=== PATIENT | male | born 1955 | race Caucasian/White ===

== ENCOUNTER 2017-03-30 06:47 | Inpatient (IN) ==
[2017-03-30] MEDS ORDERED: Vancomycin 1,500 MG in D5% in Water 250 ML IVPB ONE ×2 (07:04→19:00)
[2017-03-30] MEDS ORDERED: CeFAZolin Syr 2,000MG/20 ML 2,000 MG/20 ML SYRINGE IVPB ONE (07:04)
[2017-03-30] MEDS ORDERED: Ringers Solution, Lactated 1,000 ML IVC SCH (07:15)
--- NOTE | 2017-03-30 07:30 | Anesthesia Evaluation PreOp ---
Date of Encounter: 03/30/17 Time of Encounter: 07:27 - Past History Planned Operation: Right Fem-Pop BPG Cardiac History: NE, HTN, Hyperlipidemia, Arrhythmia (A-Fib - cardioverted 2015), Cardiac Surgery (2v CABG 12/2011), Cardiac Stent (03/2008) Pulmonary History: Former smoker (QUIT 1982) [employer] History: Other (Peripheral neuropathy) Other Medical History: Diabetes Type II, GERD Anesthesia History: No Prior Anesthetic Complications, Past Anesthesia (CABG, Greg TKR) Alcohol Use: none Drug use: none Medications and Allergies Atorvastatin Calcium [Lipitor] 80 mg PO HS 01/09/16 [History] Carvedilol [Coreg] 25 mg PO BID 01/09/16 [History] Isosorbide MONOnitrate (24 HR) [Imdur] 30 mg PO HS 01/09/16 [History] Lisinopril [Zestril] 10 mg PO DAILY 01/09/16 [History] Niacin [Niaspan] 1,000 mg PO DAILY 01/09/16 [History] Nitroglycerin [Nitrostat] 0.4 mg SL AD PRN 01/09/16 [History] Omeprazole [PriLOSEC] 20 mg PO DAILY 01/09/16 [History] Potassium Chloride [K-Tab ER] 10 meq PO DAILY 01/09/16 [History] Sertraline [Zoloft] 50 mg PO DAILY 01/09/16 [History] glyBURIDE [GlyBURIDE] 5 mg PO BID 01/09/16 [History] Diltiazem CD (24hr) [Cardizem CD] 120 mg PO DAILY 30 Days cap.er.24h 01/11/16 [ Rx] Cilostazol 100 mg PO BID 08/04/16 [History] Clopidogrel [Plavix] 75 mg PO HS 08/04/16 [History] Adalimumab [Humira Pen Psoriasis-Uveitis] 40 mg SQ Q2W 01/18/17 [History] Ferrous Sulfate [Iron] 325 mg PO BID 01/18/17 [History] FluocinoNIDE 0.05% CRM [Lidex] 1 appl TP BID 01/18/17 [History] Furosemide [Lasix] 40 mg PO DAILY PRN 01/18/17 [History] Sitagliptin Phosphate [Januvia] 50 mg PO DAILY 02/23/17 [History] HYDROcodone/Acet 5/325 mg [[place] 5-325 mg] 1 tab PO Q6HR PRN #20 tablet [Rx] 3 Allergy/AdvReac Type Severity Reaction Status Date / Time No Known Allergies Allergy Verified 02/23/17 06:37 - Meds/Allergy Pre-op Review Medications Reviewed: Yes Allergies Reviewed: Yes Beta Blockers on Current Med List: Yes If Beta Blockers taken, Date/Time (Last Dose taken): Carvedilol 25 mg 0600 Anesthesia Results - Labs Laboratory Tests 03/27/17 03/27/17 03/27/17 12:43 12:43 12:43 Hgb 11.9 L Hct 37.7 Plt Count 323 PT 12.5 H INR 1.2 APTT 30.0 Sodium 140 Potassium 4.2 BUN 22 Creatinine 1.17 Glucose 83 Calcium 9.2 - Imaging EKG: report reviewed (SINUS BRADYCARDIA INFERIOR MYOCARDIAL INFARCTION, present 01/2016) Additional studies: Stress Test 07/2016: No significant ECG changes with regadenoson. The left ventricle is mildly dilated. Gated LVEF = 61%. There is a medium-large sized, severe intensity, fixed perfusion defect involving the basal-mid inferior wall and basal inferolateral wall. Findings are consistent with myocardial infarction involving the basal-mid inferior wall and basal inferolateral wall. There is no evidence of reversible myocardial ischemia. PFT 01/2016: Spirometry: Normal without significant bronchodilator response. FVC 4.51, 92% predicted. FEV1 3.68, 99% predicted. Ratio 82 Lung Volumes: Mild increase RV 3.18, 136% predicted suggest air trapping, and TLC 7.55, 104% predicted Diffusion: Normal gas exchange. DLCOcor 32.17, 95% predicted Flow Volume Loop: Normal Overall normal PFT TTE 12/2015: Mildly dilated left atrium. LVEF 55-60%. Indeterminate diastolic function. Moderate concentric left ventricular hypertrophy (1.3-1.4cm) No severe valvular dysfunction. Unable to estimate RVSP due to lack of TR jet. Aortic valve not well evaluated but appears calcified and mildly restricted, recommend elective RADHA to evaluate for bicuspid aortic valve RADHA 01/2016: Technically challenging study with suboptimal windows. The aortic valve is poorly seen in most views but appears trileaflet with normal leaflet excursion on image #38. There is associated mild to moderate calcification. Gastric views were attempted for gradients but AV was not well imaged. Mild to moderate central mitral regurgitation. Normal LV and RV function. LA visually appears moderately dilated. There is no evidence for LA thrombus. SHAWNA is normal in appearance without thrombus. Velocities are reduced. Patient underwent successful DCCV of atrial fibrillation to NSR after 2 attempts. Anesthesia Exam Vital Signs/O2 Sat/Glucose, Most Recent Temp Pulse Resp BP Pulse Ox 97.9 F 59 18 141/70 95 03/30/17 07:05 03/30/17 07:05 03/30/17 07:05 03/30/17 07:05 03/30/17 07:05 Blood Glucose* 112 Height: 5'11" Weight: 102 Kg BMI 31 NPO (# of Hours): >8 - HEENT Mallampati: I Teeth: Normal Oral Opening: Greater than 3 - Cardiac Rhythm: Regular - Pulmonary Breath Sounds: bilateral Clear Anesthesia Assess/Plan ASA Score: 3 Modified Damien Scale for Level of Consciousness: Cooperative, oriented, and tranquil Anesthetic Plan: General Monitoring Plan: Standard Monitors, A-Line (Possible) Recovery Plan: PACU Anes Supervising Prov Stmt: I have participated in the evaluation of this patient. Patient informed and consented. Risks, benefits, and alternatives discussed. Patient wishes to proceed.
--- NOTE | 2017-03-30 07:33 | History & Physical Report ---
Date of Encounter: 03/30/17 Time of Encounter: 07:30 24 Hour HP Update - Instructions Instructions: If the History and Physical is less than 30 days old and was completed prior to A.M. admission and or procedure and has NOT been updated on calendar day of procedure please complete this update prior to performing procedure. - Update Patient reports changes in Medical Condition: No Changes in examination, assessment, or condition: No Changes in Medication: No Preop tests/diagnostics Reviewed: Yes Surgery Remains Indicated: Yes Consent for Planned Operative Procedure(s) Verified: Yes - Pre-Operative Checklist Preoperative Checklist Indicated: Yes Prophylactic Antibiotic Ordered: Yes (vancomycin due to MRSA risk) Home Medications Include Beta Marisol: Yes Beta Marisol Taken Today (Day of Surgery): Yes Beta Marisol Taken Yesterday (Day Prior to Surgery): Yes Is VTE Prophylaxis Indicated?: Yes
[2017-03-30] MEDS ORDERED: Heparin 1,000 UNITS/500 mL NS 1,000 ML ONE (07:44)
[2017-03-30] MEDS ORDERED: Vancomycin 1,000 MG VIAL ONE (07:45)
[2017-03-30] MEDS ORDERED: *HR* FentaNYL (PF) 100 MCG/2 ML VIAL ONE (08:05)
[2017-03-30] MEDS ORDERED: *HR* Propofol 200 MG/20 ML VIAL IVP ONE ×2 (08:05→09:55)
[2017-03-30] MEDS ORDERED: *HR* Succinylcholine 200 MG/10 ML VIAL IVP ONE (08:24)
[2017-03-30] MEDS ORDERED: *HR* Rocuronium Bromide 50 MG/5 ML VIAL ONE (08:24)
[2017-03-30] MEDS ORDERED: Dexamethasone 4 MG/ML VIAL ONE (08:24)
[2017-03-30] MEDS ORDERED: Lidocaine -MPF 2% 2 ML VIAL ONE (08:24)
[2017-03-30] MEDS ORDERED: *HR* HYDROmorphone 2 MG/ML SYRINGE ONE (08:58)
[2017-03-30] MEDS ORDERED: EPHEDrine 50 MG/ML VIAL ONE (09:14)
[2017-03-30] MEDS ORDERED: Ondansetron 4 MG/2 ML VIAL ONE (10:25)
[2017-03-30] MEDS ORDERED: *HR* Heparin 5,000 UNIT/ML VIAL ONE ×2 (10:25→11:06)
[2017-03-30] MEDS ORDERED: *HR* Meperidine 25 MG/ML SYRINGE IVP PRN (11:47)
[2017-03-30] MEDS ORDERED: *HR* OxyCODONE/APAP 5/325 TABLET PO PRN (11:47)
[2017-03-30] MEDS ORDERED: *HR* Promethazine 25 MG/ML VIAL IVP PRN (11:47)
[2017-03-30] MEDS ORDERED: *HR* HYDROmorphone (PF) 1 MG/ML SYRINGE IVP PRN (11:47)
[2017-03-30] MEDS ORDERED: Ondansetron 4 MG/2 ML VIAL IVP ONE (11:47)
--- NOTE | 2017-03-30 13:25 | Operative Note ---
Date of procedure: 03/30/17 Pre-op diagnosis: Peripheral vascular disease with disabling claudication Post-op diagnosis: same Procedure: 1. Right femoral to above knee popliteal artery bypass with 6mm Distaflo mini- cuff graft. 2. Right common and deep femoral endarterectomy. 3. Right popliteal endarterectomy. Complications: None Anesthesia: MAUREENA Surgeon: Rodríguez Tavarez Estimated blood loss (cc): 200 Specimen: Right lower extremity plaque Condition: stable Disposition: PACU Procedure in Detail: Indications: The patient is a 61 year old male with a history of disabling claudication who was found to have severe right femoral to popliteal artery disease including a superficial femoral artery occlusion. Revascularization was recommended for symptomatic relief. Procedure: The patient was identified in the preoperative area. The risks, benefits, and alternatives of the procedure were discussed. All questions were answered. The patient was taken to the operating room and placed in supine position on the operating room table. After the induction of general endotracheal anesthesia, he was cleaned and draped in normal sterile fashion. An oblique incision was made over the right groin sharply. Hemostasis was obtained with electrocautery. Through a process of blunt, sharp, and electrocautery dissection, the right femoral vessels were dissected circumferentially and surrounded with vessel loops. An incision was made on the right medial distal thigh sharply. Hemostasis was obtained with electrocautery. Through a process of blunt, sharp, and electrocautery dissection, the right above-knee popliteal artery was dissected proximally and distally and surrounded with vessel loops. A graft was tunneled between the popliteal and femoral incisions. The patient received 5000 units of heparin intravenously. Additional heparin was given throughout the case to maintain adequate anticoagulation. The popliteal vessels were occluded and a longitudinal arteriotomy was made in the popliteal artery. Significant stenotic plaque was encountered at the popliteal arteriotomy and a dental freer was used to perform an endarterectomy. No elevated flaps were noted after the endarterectomy. The distal end of the graft was then sutured in place with a running 6-0 Prolene, but not tied. Heparinized saline was infused into the lumen. Tension was applied to the femoral vessel loops. An arteriotomy was made in the common femoral artery. [place] plaque was noted in the common and deep femoral artery. A dental freer was used to perform an endarterectomy on the common and deep femroal arteries. Significant retrograde deep femoral flow was noted after the endarterectomy. The proximal graft was cut to fit the arteriotomy. The graft was anastamosed with a running 6-0 Prolene. The vessels were flushed through the graft and heparin was infused into the lumen. The graft was clamped with an atraumatic clamp. Thrombis and gelfoam were used at the proximal anastamosis. The distal arterial anastomosis was completed and prior to completing the closure, the popliteal vessels were flushed and reoccluded. Heparinized saline was infused into the lumen. The anastamosis was tied and then flow was restored. Polyphasic signals were noted distal to the distal anastomosis as well as at the posterior tibial artery. Wounds were irrigated with antibiotic-containing saline. Thrombin and gelfoam were used to aid in hemostasis. Platelet rich and platelet poor plasma were infused into the wounds. Meticulous hemostasis was obtained throughout the wound with electrocautery. Wounds were reapproximated with layers of 2-0 and 3-0 Vicryl. Skin was reapproximated with 3-0 Monocryl. Sterile dressing was applied. The patient was extubated and taken to recovery room in stable condition.
[2017-03-30] MEDS ORDERED: *HR* HYDROcodone/Acet 5/325 mg TABLET PO PRN (13:29)
[2017-03-30] MEDS ORDERED: *HR* OxyCODONE Immed Rel 5 MG TABLET PO PRN (13:29)
[2017-03-30] MEDS ORDERED: D5% in Water 1,000 ML IVC PRN (13:29)
[2017-03-30] MEDS ORDERED: Acetaminophen 325 MG TABLET PO PRN (13:29)
[2017-03-30] MEDS ORDERED: *HR* Labetalol 20 MG/4 ML SYRINGE IVP PRN (13:29)
[2017-03-30] MEDS ORDERED: Nitroglycerin 0.4 MG TAB.SUBL SL PRN (13:29)
[2017-03-30] MEDS ORDERED: Ondansetron 4 MG/2 ML VIAL IVP PRN (13:29)
[2017-03-30] MEDS ORDERED: Furosemide 40 MG TABLET PO PRN (13:29)
[2017-03-30] MEDS ORDERED: *HR* Morphine 2 MG/ML SYRINGE IVP PRN (13:29)
[2017-03-30] MEDS ORDERED: *HR* Dextrose 50 % in Water (Syg) 50 ML SYRINGE IVP PRN (13:29)
[2017-03-30] MEDS ORDERED: Naloxone 0.4 MG/ML INJ IVP PRN (13:29)
[2017-03-30] MEDS ORDERED: Dextrose Gel 15 GM PO PRN ×2 (13:29)
[2017-03-30] MEDS ORDERED: CeFAZolin Premix DUPLEX 2,000 MG/50 ML BAG IVPB SCH (14:30)
[2017-03-30] MEDS ORDERED: Insulin LISPRO 300 UNITS/3 ML VIAL SQ SCH ×2 (16:30→21:00)
[2017-03-30] MEDS: *HR* Metoprolol 5 MG/5 ML VIAL IVP SCH ×2 (17:36→23:29)
[2017-03-30] MEDS ORDERED: *HR* Heparin 5,000 UNIT/ML VIAL SQ SCH (18:00)
--- NOTE | 2017-03-30 18:15 | Event Note ---
Date of Encounter: 03/30/17 Time of Encounter: 17:50 The patient was seen and examined this evening. He has swelling around the lower thigh, particluarly in the posterior medial portion. His compartemtns are soft. He has now pain with passive motion. There is no ecchymosis or pulsatile mass. The patient has polyphasic pedal signals. He is hemodynamically stable with adequate pain control. He will continue to elevate his right lower extremity. He will continue with an ice pack on the right thigh. Patient discussed with nursing and family.
[2017-03-30] MEDS ORDERED: Isosorbide MONOnitrate (24 HR) 30 MG TAB.ER.24H PO SCH (21:00)
[2017-03-30] MEDS: FluocinoNIDE 0.05% CRM 15 GM TUBE TP SCH (21:14)
[2017-03-31] MEDS ORDERED: CeFAZolin Premix DUPLEX 2,000 MG/50 ML BAG IVPB SCH
[2017-03-31 04:02] LABS: Basophils % 0.2 %; Eosinophils # 0.1 K/mcL (0.0-0.6); Eosinophils % 0.6 %; Hematocrit 30.8 % (37.5-50.1); Immature Granulocytes % 0.5 % (0-4); Lymphocytes # 2.3 K/mcL (0.6-4.6); Mean Corpuscular HGB Conc 31.2 g/dL (31.6-35.5); Mean Corpuscular Hemoglobin 25.5 pg (28.0-33.3); Mean Corpuscular Volume 81.7 fL (83.0-100.0); Mean Platelet Volume 9.7 fL (9.4-12.4); Monocytes # 1.6 K/mcL (0.0-1.3); Monocytes % 10.9 %; Neutrophils # 10.5 K/mcL (1.6-8.9); Platelet Count 259 K/mcL (140-400); Red Blood Count 3.77 M/mcL (4.19-5.50); Red Cell Distribution Width 13.9 % (11.5-14.5); Segmented Neutrophils % 71.8 %
[2017-03-31 04:03] LABS: Hemoglobin 9.6 g/dL (12.9-16.9)
[2017-03-31 04:17] LABS: BUN/Creatinine Ratio 18 (6-26); Blood Urea Nitrogen 22 mg/dL (8-26); Carbon Dioxide 26 mEq/L (19-29); Chloride 103 mEq/L (98-109); Glucose 112 mg/dL (70-99); Osmolality,Calculated 288 (280-300); Potassium 4.4 mEq/L (3.5-4.5); Sodium 137 mEq/L (136-145); eGFR For African Americans > 60 (> 60); eGFR For Non-African Americans > 60 (> 60)
[2017-03-31] MEDS: *HR* Metoprolol 5 MG/5 ML VIAL IVP SCH (05:10)
[2017-03-31] MEDS ORDERED: *HR* Heparin 5,000 UNIT/ML VIAL SQ SCH (06:00)
--- NOTE | 2017-03-31 07:42 | Discharge Summary ---
Date of Encounter: 03/31/17 Time of Encounter: 08:45 - Discharge Diagnosis (1) Atherosclerosis of [place] arteries of extremities with intermittent claudication, bilateral legs Priority: Primary Status: Chronic Comments: The patient is postoperative day #1 after a right femoral to popliteal artery bypass. He reports some bruning pain along his anterior leblanc. He reports that he is able to ambulate. He has palpable pedal pulses and his compartments are soft. The swelling in his distal thigh is stable and appears softer today. He states that he would like to go home today. He will be discharged. (2) Chronic anemia Priority: Secondary Status: Chronic Comments: The patient has chronic anemia with acute expected postoperative blood loss anemia. He is hemodynamically stable without evidence of ongoing blood loss. (3) CAD (coronary artery disease) Priority: Secondary Status: Chronic Qualifiers: Coronary Disease-Associated Artery/Lesion type: unspecified vessel or lesion type [place] vs. 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 Qualified Code(s): E11.8 - Type 2 diabetes mellitus with unspecified complications (5) HTN (hypertension) Priority: Secondary Status: Chronic Qualifiers: Hypertension type: essential hypertension Qualified Code(s): I10 - Essential (primary) hypertension (6) HLD (hyperlipidemia) Priority: Secondary Status: Chronic Qualifiers: Hyperlipidemia type: unspecified Qualified Code(s): E78.5 - Hyperlipidemia , unspecified - Discharge Medications Prescriptions: OxyCODONE/APAP 5/325 [Percocet 5/325 MG] 1 each PO Q6HR PRN #25 tablet PRN Reason: POSTOPERATIVE PAIN Home Medications: Atorvastatin Calcium [Lipitor] 80 mg PO HS 01/09/16 [History] Carvedilol [Coreg] 25 mg PO BID 01/09/16 [History] Isosorbide MONOnitrate (24 HR) [Imdur] 30 mg PO HS 01/09/16 [History] Lisinopril [Zestril] 10 mg PO DAILY 01/09/16 [History] Nitroglycerin [Nitrostat] 0.4 mg SL AD PRN 01/09/16 [History] Omeprazole [PriLOSEC] 20 mg PO DAILY 01/09/16 [History] Potassium Chloride [K-Tab ER] 10 meq PO DAILY 01/09/16 [History] Sertraline [Zoloft] 50 mg PO DAILY 01/09/16 [History] glyBURIDE [GlyBURIDE] 5 mg PO BID 01/09/16 [History] Diltiazem CD (24hr) [Cardizem CD] 120 mg PO DAILY 30 Days cap.er.24h 01/11/16 [ Rx] Cilostazol 100 mg PO BID 08/04/16 [History] Clopidogrel [Plavix] 75 mg PO HS 08/04/16 [History] Adalimumab [Humira Pen Psoriasis-Uveitis] 40 mg SQ Q2W 01/18/17 [History] Ferrous Sulfate [Iron] 325 mg PO BID 01/18/17 [History] FluocinoNIDE 0.05% CRM [Lidex] 1 appl TP BID 01/18/17 [History] Furosemide [Lasix] 40 mg PO DAILY PRN 01/18/17 [History] Sitagliptin Phosphate [Januvia] 50 mg PO DAILY 02/23/17 [History] Niacin 100 mg PO DAILY 03/30/17 [History] OxyCODONE/APAP 5/325 [Percocet 5/325 MG] 1 each PO Q6HR PRN #25 tablet 03/31/17 [Rx] Allergies/Adverse Reactions: 3 Allergy/AdvReac Type Severity Reaction Status Date / Time No Known Allergies Allergy Verified 03/30/17 08:02 Date of admission: 03/30/17 13:16 Primary care physician: Tae Schuster MD Procedure(s) Performed: Right femoral to popliteal artery bypass Discharging clinician: Rodríguez Tavarez Anticipated date of discharge: 03/31/17 - Patient Status Disposition: Home, Self-Care Condition: Good Functional capacity at discharge: independent ambulation Overall status at discharge: patient is progressing back to baseline - Discharge Instructions Instructions: Diabetes Mellitus Type 2 in Adults (DC), Peripheral Vascular Disorders (DC) Follow Up With: Rodríguez Tavarez MD [Partnered Physician] - 04/26/17 2:20 pm Naun Luong MD [Non-Partnered Physician] - 04/07/17 10:15 am - Diet and Activity Activity: increase activity as tolerated Diet: advance to your usual diet - Hospital Course Hospital course: Mr. Sim is a 61 year old male with a history of peripheral vascular disease with disabling claudication due to right femoral to popliteal disease. He underwenta right femoral to popliteal bypass as well as a right lower extremity endarterectomy. He tolerated the procedure well and was discharged in stable condition on posotperative day #1 without complications. - Time Spent with Patient Total time spent providing and/or coordinating discharge services: Exam Vital Signs, Last 4 Hours Temp Pulse Resp BP Pulse Ox 03/31/17 04:16 97.7 F 56 18 151/79 100 General: Present: Conversant, No Apparent Distress HEENT: Present: Pupils equal Cardiac: Present: Reg Rate and Rhythm Lungs: Present: Normal Breath Sounds Neuro: Present: Alert and responsive, No focal deficits noted, Motor nerves grossly intact, Sensory nerves grossly intact Abdomen: Present: Soft Vascular: Present: Normal capillary refill, Pulse, normal. Absent: Cyanosis Skin: Present: No rashes noted on visualized skin Musculoskeletal: Present: No Chest Wall Tenderness, Other (swelling noted at distal right thigh, appears stable and has decreased since yesterday, no ecchymosis) - VTE Documentation of Mechanical Device: Intermittent pneumatic compression device
[2017-03-31] MEDS: FluocinoNIDE 0.05% CRM 15 GM TUBE TP SCH (07:50)
[2017-03-31 08:10] VITALS: BP 136/77
[2017-03-31] MEDS ORDERED: *HR* SitaGLIPtin 25 MG TABLET PO SCH (09:00)
[2017-03-31] MEDS ORDERED: NIACIN 100 MG PO SCH (09:00)
[2017-03-31] MEDS ORDERED: Diltiazem CD (24hr) 120 MG CAPSULE PO SCH (09:00)
== END 2017-03-31 11:21 | disposition home or self-care (01) | DRG 253 ==
LOC: SAMDAY 06:47 → 2NNU 13:16
PROVIDERS: ADMIT Surgery; ATTEND Surgery

== ENCOUNTER 2019-06-29 10:23 | Observation (INO) ==
[2019-06-29] MEDS ORDERED: 0.9 % Sodium Chloride 500 ML IVC ONE (10:40)
[2019-06-29] MEDS ORDERED: Ondansetron 4 MG/2 ML VIAL IVP ONE (10:40)
[2019-06-29 11:10] LABS: Basophils # 0.1 K/mcL (0.0-0.2); Basophils % 0.5 %; Eosinophils # 0.3 K/mcL (0.0-0.6); Eosinophils % 2.9 %; Hematocrit 50.8 % (37.5-50.1); Hemoglobin 16.4 g/dL (12.9-16.9); Immature Granulocytes % 0.8 % (0-4); Lymphocytes # 1.3 K/mcL (0.6-4.6); Mean Corpuscular HGB Conc 32.3 g/dL (31.6-35.5); Mean Corpuscular Hemoglobin 27.7 pg (28.0-33.3); Mean Platelet Volume 9.6 fL (9.4-12.4); Monocytes # 0.9 K/mcL (0.0-1.3); Monocytes % 9.6 %; Neutrophils # 7.1 K/mcL (1.6-8.9); Platelet Count 262 K/mcL (140-400); Red Blood Count 5.91 M/mcL (4.19-5.50); Red Cell Distribution Width 13.6 % (11.5-14.5); Segmented Neutrophils % 73.2 %; White Blood Count 9.7 K/mcL (4.3-11.1)
[2019-06-29 11:12] LABS: INR 1.3; Prothrombin Time 15.1 Seconds (9.4-12.1)
[2019-06-29 11:14] LABS: Activated Partial Thrombo Time 38.1 Seconds (26.0-36.0)
[2019-06-29 11:21] LABS: Alanine Aminotransferase 31 Units/L (7-52); Albumin 4.3 g/dL (3.5-5.7); Albumin/Globulin Ratio 1.2 (1.1-2.2); Alkaline Phosphatase 95 Units/L (34-104); Aspartate Amino Transferase 27 Units/L (13-39); BUN/Creatinine Ratio 18 (6-26); Bilirubin,Direct 0.1 mg/dL (0.0-0.2); Bilirubin,Indirect 0.5 mg/dL (0.0-1.0); Bilirubin,Total 0.6 mg/dL (0.3-1.0); Blood Urea Nitrogen 21 mg/dL (8-23); Calcium 9.3 mg/dL (8.6-10.3); Carbon Dioxide 21 mEq/L (23-29); Chloride 99 mEq/L (98-107); Globulin 3.5 g/dL (2.4-3.5); Glucose 334 mg/dL (70-105); Lipase 70 Units/L (11-82); Osmolality,Calculated 288 (280-300); Potassium 4.3 mEq/L (3.5-5.1); Sodium 131 mEq/L (136-145); Total Protein 7.8 g/dL (6.4-8.9); Troponin I < 0.03 ng/mL (< 0.04); eGFR For African Americans > 60 (> 60); eGFR For Non-African Americans > 60 (> 60)
[2019-06-29] MEDS ORDERED: Nitroglycerin 0.4 MG TAB.SUBL SL PRN (12:17)
[2019-06-29] MEDS ORDERED: Vancomycin Oral Soln 125 MG/2.5 ML UDC PO SCH (13:00)
[2019-06-29] MEDS ORDERED: Naloxone 0.4 MG/ML INJ IVP PRN (13:23)
[2019-06-29] MEDS ORDERED: Ondansetron 4 MG/2 ML VIAL IVP PRN (13:23)
[2019-06-29] MEDS ORDERED: Acetaminophen 325 MG TABLET PO PRN (13:23)
[2019-06-29] MEDS: 0.9 % Sodium Chloride 1,000 ML IVC SCH (16:02)
[2019-06-29] MEDS ORDERED: Furosemide 40 MG TABLET PO PRN (17:57)
[2019-06-29] MEDS: Apixaban 5 MG TABLET PO SCH (20:17)
[2019-06-29] MEDS: carvediloL 25 MG TABLET PO SCH (20:17)
[2019-06-29] MEDS ORDERED: Isosorbide MONOnitrate (24 HR) 30 MG TAB.ER.24H PO SCH (21:00)
[2019-06-30] MEDS: 0.9 % Sodium Chloride 1,000 ML IVC SCH (03:55)
[2019-06-30 05:52] LABS: Basophils % 0.4 %; Eosinophils # 0.3 K/mcL (0.0-0.6); Eosinophils % 3.5 %; Hematocrit 46.9 % (37.5-50.1); Hemoglobin 15.3 g/dL (12.9-16.9); Immature Granulocytes % 1.1 % (0-4); Lymphocytes # 1.6 K/mcL (0.6-4.6); Mean Corpuscular HGB Conc 32.6 g/dL (31.6-35.5); Mean Corpuscular Hemoglobin 27.9 pg (28.0-33.3); Mean Corpuscular Volume 85.6 fL (83.0-100.0); Mean Platelet Volume 9.4 fL (9.4-12.4); Monocytes # 1.1 K/mcL (0.0-1.3); Neutrophils # 5.3 K/mcL (1.6-8.9); Platelet Count 225 K/mcL (140-400); Red Blood Count 5.48 M/mcL (4.19-5.50); Red Cell Distribution Width 13.7 % (11.5-14.5); White Blood Count 8.4 K/mcL (4.3-11.1)
[2019-06-30 05:58] LABS: INR 1.4; Prothrombin Time 15.9 Seconds (9.4-12.1)
[2019-06-30 06:13] LABS: BUN/Creatinine Ratio 18 (6-26); Blood Urea Nitrogen 19 mg/dL (8-23); Calcium 8.5 mg/dL (8.6-10.3); Carbon Dioxide 20 mEq/L (23-29); Chloride 106 mEq/L (98-107); Glucose 204 mg/dL (70-105); Magnesium 1.6 mg/dL (1.6-2.6); Osmolality,Calculated 286 (280-300); Potassium 3.8 mEq/L (3.5-5.1); Sodium 134 mEq/L (136-145); eGFR For African Americans > 60 (> 60); eGFR For Non-African Americans > 60 (> 60)
[2019-06-30 07:07] VITALS: BP 105/71
[2019-06-30] MEDS: Apixaban 5 MG TABLET PO SCH (07:45)
[2019-06-30] MEDS: carvediloL 25 MG TABLET PO SCH (07:45)
[2019-06-30] MEDS ORDERED: DilTIAZem CD (24hr) 120 MG CAP.ER.24H PO SCH (09:00)
== END 2019-06-30 12:26 | disposition home or self-care (01) ==
LOC: EMEROOARM 10:23 → 3BNU 10:23
PROVIDERS: ADMIT Pharmacist; ATTEND Pharmacist

== ENCOUNTER 2021-09-28 09:00 | Observation (INO) ==
[2021-09-28] MEDS ORDERED: Naloxone 0.4 MG/ML INJ IVP PRN (11:51)
[2021-09-28 13:10] LABS: Hemoglobin 12.4 g/dL (12.9-16.9); Mean Corpuscular HGB Conc 31.8 g/dL (31.6-35.5); Mean Corpuscular Hemoglobin 28.7 pg (28.0-33.3); Mean Corpuscular Volume 90.3 fL (83.0-100.0); Mean Platelet Volume 9.5 fL (9.4-12.4); Platelet Count 248 K/mcL (140-400); Red Blood Count 4.32 M/mcL (4.19-5.50); White Blood Count 9.4 K/mcL (4.3-11.1)
[2021-09-28 13:43] LABS: Calcium 8.7 mg/dL (8.6-10.3); Magnesium 1.8 mg/dL (1.6-2.6); Potassium 4.3 mEq/L (3.5-5.1)
[2021-09-28] MEDS ORDERED: Nitroglycerin 0.4 MG TAB.SUBL SL PRN (16:01)
[2021-09-28] MEDS ORDERED: Ipratropium/Albuterol Neb 3 ML IH PRN (16:01)
[2021-09-28] MEDS: carvediloL 6.25 MG TABLET PO SCH (16:28)
[2021-09-28] MEDS: *HR* GlyBURIDE 5 MG TABLET PO SCH (19:57)
[2021-09-28] MEDS: Apixaban 5 MG TABLET PO SCH (19:58)
[2021-09-28] MEDS ORDERED: Insulin DETEMIR 100 UNIT/ML X5UNITS SUBQ SCH (21:00)
[2021-09-29 06:08] LABS: BUN/Creatinine Ratio 17 (6-26); Blood Urea Nitrogen 21 mg/dL (8-23); Carbon Dioxide 27 mEq/L (23-29); Chloride 103 mEq/L (98-107); Glucose 63 mg/dL (70-105); Magnesium 1.9 mg/dL (1.6-2.6); Osmolality,Calculated 285 (280-300); Potassium 4.2 mEq/L (3.5-5.1); Sodium 137 mEq/L (136-145); eGFR For African Americans > 60 (> 60); eGFR For Non-African Americans 60 (> 60)
[2021-09-29] MEDS: Acetaminophen 325 MG TABLET PO PRN ×2 (07:11→16:33)
[2021-09-29] MEDS: *HR* GlyBURIDE 5 MG TABLET PO SCH (09:19)
[2021-09-29] MEDS: lisinopriL 5 MG TABLET PO SCH (09:19)
[2021-09-29] MEDS: Furosemide 20 MG TABLET PO SCH (09:19)
[2021-09-29] MEDS: Isosorbide MONOnitrate (24 HR) 30 MG TAB.ER.24H PO SCH (09:19)
[2021-09-29] MEDS: carvediloL 6.25 MG TABLET PO SCH ×2 (09:19→16:31)
[2021-09-29] MEDS: Apixaban 5 MG TABLET PO SCH ×2 (09:19→19:52)
[2021-09-29] MEDS: Cholecalciferol (D-3) 1,000 UNIT (25MCG) TABLET PO SCH (09:19)
[2021-09-29] MEDS: Insulin DETEMIR 100 UNIT/ML X5UNITS SUBQ SCH (19:53)
[2021-09-29] MEDS ORDERED: D5% in Water 1,000 ML IVC PRN (22:25)
[2021-09-29] MEDS ORDERED: *HR* Dextrose 50 % in Water (Syg) 50 ML SYRINGE IVP PRN (22:25)
[2021-09-29] MEDS ORDERED: Dextrose 4 GM Chewable Tablets PO PRN ×2 (22:25)
[2021-09-30 03:13] LABS: BUN/Creatinine Ratio 20 (6-26); Blood Urea Nitrogen 25 mg/dL (8-23); Calcium 9.1 mg/dL (8.6-10.3); Carbon Dioxide 27 mEq/L (23-29); Chloride 101 mEq/L (98-107); Glucose 85 mg/dL (70-105); Magnesium 1.9 mg/dL (1.6-2.6); Osmolality,Calculated 288 (280-300); Potassium 4.2 mEq/L (3.5-5.1); Sodium 137 mEq/L (136-145); eGFR For African Americans > 60 (> 60); eGFR For Non-African Americans 56 (> 60)
[2021-09-30] MEDS: carvediloL 6.25 MG TABLET PO SCH ×2 (08:29→16:22)
[2021-09-30] MEDS: Cholecalciferol (D-3) 1,000 UNIT (25MCG) TABLET PO SCH (08:29)
[2021-09-30] MEDS: Apixaban 5 MG TABLET PO SCH ×2 (08:29→21:08)
[2021-09-30] MEDS: Isosorbide MONOnitrate (24 HR) 30 MG TAB.ER.24H PO SCH (08:29)
[2021-09-30] MEDS: lisinopriL 5 MG TABLET PO SCH (08:30)
[2021-09-30] MEDS: Furosemide 20 MG TABLET PO SCH (08:30)
[2021-09-30] MEDS ORDERED: *HR* FentaNYL (PF) 100 MCG/2 ML VIAL IVP PRN (10:45)
[2021-09-30] MEDS ORDERED: 0.9 % Sodium Chloride 500 ML IVC ONE ×2 (10:46→14:11)
[2021-09-30] MEDS ORDERED: *HR* Midazolam HCl 5 MG/5 ML VIAL IVP PRN (10:46)
[2021-09-30] MEDS ORDERED: *HR* Etomidate 20 MG/10 ML AMPUL IVP ONE (11:57)
[2021-09-30] MEDS: Insulin DETEMIR 100 UNIT/ML X5UNITS SUBQ SCH (21:08)
[2021-10-01] MEDS: Cholecalciferol (D-3) 1,000 UNIT (25MCG) TABLET PO SCH (07:56)
[2021-10-01] MEDS: Isosorbide MONOnitrate (24 HR) 30 MG TAB.ER.24H PO SCH (07:56)
[2021-10-01] MEDS: Furosemide 20 MG TABLET PO SCH (07:56)
[2021-10-01] MEDS: Apixaban 5 MG TABLET PO SCH (07:57)
[2021-10-01] MEDS: carvediloL 6.25 MG TABLET PO SCH (07:57)
[2021-10-01] MEDS: lisinopriL 5 MG TABLET PO SCH (07:57)
[2021-10-01] MEDS ORDERED: ADALIMUMAB 40 MG/0.4 ML SUBQ SCH (09:00)
[2021-10-01 10:21] VITALS: BP 135/77; PULSE 60; TEMP 97.9; O2SAT 97
== END 2021-10-01 11:58 | disposition home or self-care (01) ==
LOC: 3BNU
PROVIDERS: ADMIT Internal Medicine Clinical Cardiac Electrophysiology; ATTEND Internal Medicine Clinical Cardiac Electrophysiology